=== PATIENT | female | born 1965 | race Caucasian/White ===

== ENCOUNTER 2018-04-25 11:26 | Emergency (ER) | payer SELFPAY ==
[~2018-04-25] VITALS: Ht 170.2 cm; Wt 63.6 kg
[2018-04-25 11:54] VITALS: Ht 170.2 cm; Wt 63.6 kg
[2018-04-25] MEDS ORDERED: ACETAMINOPHEN325 MG PO (11:56)
[2018-04-25] MEDS ORDERED: BUTALB-APAP-CA1 EACH PO (15:19)
[2018-04-25 16:01] VITALS: BP 129/93
== END 2018-04-25 16:01 | disposition home or self-care (01) ==
LOC: D.ER 11:26 → EDBD 11:26 → D.ER 16:01
DX: R42 Dizziness and giddiness (principal); R51 Headache; Z04.1 Encounter for examination and observation following transport accident; F17.200 Nicotine dependence, unspecified, uncomplicated